=== PATIENT | female | born 1960 | race Caucasian/White ===

== ENCOUNTER 2017-02-01 18:48 | Emergency (ER) | payer SELFPAY ==
[2017-02-01 18:56] VITALS: RESP 18; TEMP 98.2
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
[2017-02-01] MEDS ORDERED: ONDANSETRON 4 MG/2 ML VIAL IVP PRN (19:52)
[2017-02-01] MEDS ORDERED: HYDROmorphONE/DILAUDID 1 MG/ML INJ IVP PRN (19:52)
[2017-02-01] MEDS ORDERED: HYDROCODONE/APAP 5/325 TAB PO PRN (19:52)
[2017-02-01] MEDS ORDERED: LR 1,000 ML IV SCH (20:00)
[2017-02-01] MEDS ORDERED: HYDROmorphONE/DILAUDID 1 MG/ML INJ ONE (20:04)
[2017-02-01] MEDS ORDERED: HYDROmorphONE/DILAUDID 1 MG/ML INJ IVP ONE (20:05)
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
[2017-02-02] MEDS ORDERED: HYDROmorphONE/DILAUDID 1 MG/ML INJ IVP ONE (00:31)
[2017-02-02 00:32] VITALS: BP 160/90; PULSE 90; O2SAT 94
[2017-02-02] MEDS ORDERED: HYDROCOD/APAP 5/325 PREPACK#6 BTL TAKEHOME ONE (01:25)
--- NOTE | 2017-02-02 14:19 | GCON ---
[f rep st] CONSULTATION DATE OF CONSULTATION: 02/01/2017 ADDENDUM: This is an addendum to a previously dictated general consultation report by Anika Quinones PA-C, on 02/01/2017, ITS MR#[id number], / [id number]/MODL. After discussing her care further with Dr. Reid, the patient has decided to delay surgery until she returns home to [place]. In the emergency department, the patient was placed in a long-leg posterior splint with a stirrup by Dr Reid and BELLA De Leon. Some minor manipulation of the fracture achieved better alignment of the fracture after. The patient was then held in this position as a splint set. After further discussion with Dr. Reid, the patient would like to be discharged. She does understand the importance of close followup and will arrange with a surgeon in [place] to be seen early this coming week for developing a plan for her fracture care. In the meantime, she will return to the emergency department for increasing pain, numbness, tingling, or difficulty of any type. /[id number]/MODL MTDD
== END 2017-02-02 02:00 | disposition home or self-care (01) ==
LOC: UNDOADMOB 19:47 → INTOOBSV 19:52 → OBSVTOIN 19:52 → INTOOBSV 19:53
DX: S82.202A Unspecified fracture of shaft of left tibia, initial encounter for closed fracture (principal); V86.99XA Unspecified occupant of other special all-terrain or other off-road motor vehicle injured in nontraffic accident, initial encounter
CPT/HCPCS: 96374; J1170